=== PATIENT | female | born 1950 | race Caucasian/White ===

== ENCOUNTER 2023-11-20 19:29 | Observation (INO) | payer MEDICARE, BC ==
[~2023-11-20] VITALS: Ht 162.6 cm; Wt 72.0 kg
[2023-11-20] MEDS ORDERED: ASPIRIN 81 MG/TAB PO ONE (19:35)
[2023-11-20 19:41] VITALS: BP 143/57
[2023-11-20 20:14] LABS: BASO% 0.7 % (0-3); EOS% 4.8 % (0-8); HEMATOCRIT 40.1 % (37.0-47.0); HEMOGLOBIN 13.1 g/dl (12.0-16.0); IMMATURE GRANULOCYTES 0.4 % (0.0-5.0); LYMPH% 38.3 % (15-41); MEAN CELL VOLUME 92.2 fL CALC (80.0-100.0); MEAN CORPUSCULAR HGB 30.1 pG CALC (26.0-32.0); MEAN CORPUSCULAR HGB CONC 32.7 g/dL CAL (32.0-36.0); MONO% 10.1 % (2-13); NEUT# 3.16 thou/uL (2.00-7.15); NEUT% 45.7 % (42-76); RED BLOOD COUNT 4.35 mill/uL (4.20-5.60); RED CELL DISTRI WIDTH 12.6 % (11.5-15.5)
[2023-11-20 20:29] LABS: LIPASE 117 u/l (23-300); PROTHROMBIN TIME 9.9 SECONDS (9.0-12.5)
[2023-11-20 20:30] LABS: ALKALINE PHOSPHATASE 62 u/l (38-126); BILIRUBIN, TOTAL 0.2 mg/dL (0.02-1.3); BUN 18 mg/dL (8-23); BUN/CREATININE RATIO 22 (12-20 (CALC)); CHLORIDE 103 mmol/l (95-108); CREATININE 0.8 mg/dL (0.5-1.0); GFR FOR AFR.AMER. > 60 ML/MIN (>=60 (CALC)); GFR OTHER RACES > 60 ML/MIN (>=60 (CALC)); SGOT/AST 31 u/l (9-36); SODIUM 137 mmol/l (137-146); TOTAL PROTEIN 7.1 g/dL (6.3-8.2)
[2023-11-20 20:32] LABS: ANION GAP 16 (6-22 (CALC)); CARBON DIOXIDE 22 mmol/l (22-30)
[2023-11-20 22:31] VITALS: BP 120/98
[2023-11-20 23:01] VITALS: BP 121/57
[2023-11-20] MEDS ORDERED: AZITHROMYCIN 250 MG/TAB PO ONE (23:30)
[2023-11-20 23:31] VITALS: BP 118/53
[2023-11-21] VITALS (9 sets, daily range): BP systolic 103–147; BP diastolic 42–97
[2023-11-21] MEDS ORDERED: ONDANSETRON HCl 4 MG/2 ML SDV IV PRN
[2023-11-21] MEDS ORDERED: ONDANSETRON 4 MG/TAB ODT PO PRN
[2023-11-21] MEDS ORDERED: METOPROLOL TAR100 MG PO (04:26)
[2023-11-21] MEDS ORDERED: LOSARTAN POTASS1 TA4 (04:27)
[2023-11-21] MEDS ORDERED: EZETIMIBE10 MG PO (04:28)
[2023-11-21 04:38] LABS: URINE BILIRUBIN - DIPSTICK Negative (NEGATIVE); URINE BLOOD DIPSTICK Negative (NEGATIVE); URINE GLUCOSE - DIPSTICK Negative (NEGATIVE); URINE KETONE Negative (NEGATIVE); URINE LEUK ESTERASE Negative (NEGATIVE); URINE NITRITE - DIPSTICK Negative (Negative); URINE PH 5.5 (4.5-8.0); URINE PROTEIN - DIPSTICK Negative (NEG-TRACE); URINE SPECIFIC GRAVITY <=1.005; URINE UROBILINOGEN - DIPSTICK 0.2 E.U./dL (0.2)
[2023-11-21 04:44] LABS: URINE COLOR Yellow
[2023-11-21] MEDS ORDERED: Heparin SODIUM (Porcine) 5,000 UNITS/ML SDV IV SCH (08:30)
[2023-11-21] MEDS ORDERED: NS 0.45% IV PRN (08:30)
[2023-11-21] MEDS ORDERED: DRIP IV PRN (08:30)
[2023-11-21] MEDS ORDERED: HEPARIN SODIUM IV PRN (08:30)
[2023-11-21] MEDS ORDERED: ASPIRIN 81 MG/TAB PO SCH (09:00)
[2023-11-21] MEDS ORDERED: IBUPROFEN 800 MG/TAB PO PRN (23:55)
[2023-11-21] MEDS ORDERED: MAGNESIUM HYDROXIDE 30 ML UDC PO PRN (23:55)
[2023-11-21] MEDS ORDERED: ALUM & MAG HYDROX-SIMETHICONE 30 ML PO PRN (23:55)
[2023-11-21] MEDS ORDERED: FAMOTIDINE 10MG/ML 2ML SDV IV PRN (23:55)
== END 2023-11-21 11:42 | disposition short-term general hospital (02) ==
LOC: ED 19:29 → ED-I 20:30 → ED 11-21 01:45 → ED-I 11-21 01:45
PROVIDERS: Internal Medicine; Nurse Practitioner; ADMIT Student in an Organized Health Care Education/Training Program; ATTEND Student in an Organized Health Care Education/Training Program
DX: R07.9 Chest pain, unspecified (principal); R79.89 Other specified abnormal findings of blood chemistry; J18.9 Pneumonia, unspecified organism; I10 Essential (primary) hypertension; I25.10 Atherosclerotic heart disease of native coronary artery without angina pectoris; I25.2 Old myocardial infarction; Z95.5 Presence of coronary angioplasty implant and graft; Z87.891 Personal history of nicotine dependence
CPT/HCPCS: J1644